=== PATIENT | female | born 1955 | race Two or more races ===

== ENCOUNTER 2019-01-27 12:56 | Emergency (ER) | payer MEDICAID ==
[~2019-01-27] VITALS: Ht 147.3 cm; Wt 58.2 kg
--- NOTE | 2019-01-27 13:16 | NUR ---
PT ARRIVED TO ROOM 24 AMBULATORY. PT C/O HEADACHE AND NECK PAIN. PT STATES SHE TOOK INUPROFEN AND ALLERGY PILL THIS AM. PT ALSO STATES INTERMITTENT NAUSEA AND DIZZINESS. PT ATTACHED TO MONITOR, VSS EXCEPT HTN. MD AT BEDSIDE FOR EXAM. PT RESTING IN GOWN AND ON GURNEY, CALL LIGHT WITHIN REACH.
[2019-01-27 13:24] VITALS: BP 148/80
--- NOTE | 2019-01-27 13:24 | NUR ---
PT MEDICATED FOR PAIN WITH TRAMADOL 50MG. VSS.
== END 2019-01-27 15:16 | disposition home or self-care (01) ==
LOC: ED 15:00
DX: G44.219 Episodic tension-type headache, not intractable (principal); G43.909 Migraine, unspecified, not intractable, without status migrainosus; M54.2 Cervicalgia; F17.200 Nicotine dependence, unspecified, uncomplicated; Z98.890 Other specified postprocedural states; Z88.5 Allergy status to narcotic agent
CPT/HCPCS: 99283

== ENCOUNTER 2019-05-22 12:53 | Emergency (ER) | payer MEDICAID ==
[~2019-05-22] VITALS: Ht 147.3 cm; Wt 58.0 kg
[2019-05-22 14:59] LABS: BASOPHILS # (AUTO) 0.02 x10^3/uL (0-0.1); BASOPHILS % (AUTO) 0 % (0-1); EOSINOPHILS # (AUTO) 0.05 x10^3/uL (0-0.4); EOSINOPHILS % (AUTO) 1 % (1-7); LYMPHOCYTES # (AUTO) 1.82 x10^3/uL (1-3.4); LYMPHOCYTES % (AUTO) 34 % (22-44); MD NO; MEAN CORPUSCULAR HEMOGLOBIN 32.2 pg (27.0-34.8); MEAN CORPUSCULAR VOLUME 97.5 fL (80-100); MEAN PLATELET VOLUME 8.1 fL (7.4-10.4); MONOCYTES # (AUTO) 0.33 x10^3/uL (0.2-0.8); MONOCYTES % (AUTO) 6 % (2-9); NEUTROPHILS % (AUTO) 58 % (42-75); PLATELET COUNT 221 x10^3/uL (130-400); RED BLOOD COUNT 4.77 x10^6/uL (3.82-5.3); RED CELL DISTRIBUTION WIDTH 13.4 % (9.6-15.2)
--- NOTE | 2019-05-22 15:03 | NUR ---
CHOREOGRAPHY DIRECTOR: PT TO ROOM FROM [facility]
[2019-05-22 15:05] LABS: ALANINE AMINOTRANSFERASE 33 U/L (12-78); ALBUMIN 4.2 g/dL (3.4-5.0); ANION GAP 6 mmol/L (5-15); CHLORIDE 107 mmol/L (98-107); CREATININE 0.76 mg/dL (0.55-1.02)
[2019-05-22 15:07] LABS: ALKALINE PHOSPHATASE 139 U/L (45-117); BILIRUBIN,TOTAL 0.4 mg/dL (0.2-1.0); TOTAL PROTEIN 8.1 g/dL (6.4-8.2)
[2019-05-22 15:23] LABS: CULTURE INDICATED? NO; MICROSCOPIC NOT IND
--- NOTE | 2019-05-22 15:59 | NUR ---
BREAK RN: PT W/ C/O LLQ ABD PAIN INTERMITTANT FOR PAST FEW MONTHS. +FOR NAUSEA BUT DENIES EMESIS AND DENIES DIARRHEA. PT VSS, LABS AND URINE RESULTS PENDING. CALL LIGHT W/I REACH.
--- NOTE | 2019-05-22 17:31 | NUR ---
to ct scan
[2019-05-22] MEDS ORDERED: OMNIPAQUE 350 MG/ML, 100ML BOTTLE ONE (17:42)
[2019-05-22 17:50] VITALS: BP 147/99
--- NOTE | 2019-05-22 18:37 | NUR ---
WITH REASSESSMENT PATIENT REPORT PAIN MININMAL-DEFERRING MEDICATIONS ASKING FOR WATER/DISPO ESTIMATION PATIENT PLACED ON RECHECK FOR MD RE-EVAL VSS ON NIBP/POX
== END 2019-05-22 19:25 | disposition home or self-care (01) ==
LOC: ED 16:05
DX: R10.32 Left lower quadrant pain (principal); F17.200 Nicotine dependence, unspecified, uncomplicated
CPT/HCPCS: 36415; 74177; 80053; 81003; 83690; 85025; 99284; Q9967

== ENCOUNTER 2021-01-27 15:35 | Emergency (ER) | payer MEDICAID, MEDICARE ==
[~2021-01-27] VITALS: Ht 147.3 cm; Wt 55.0 kg
--- NOTE | 2021-01-27 15:44 | NUR ---
PT AMBULATORY TO ROOM FROM TRIAGE, PT CHANGED INTO GOWN, MONITORS IN PLACE. PT C/O LLQ PAIN THAT RADIATES TO BACK. PT STATED "I HAVE DIVERTICULITIS. I HAVE BEEN SICK SINCE SUNDAY, I CAN'T TAKE THE PAIN ANYMORE. I ALSO FELL / AND I THINK THAT MADE IT WORST." CALL LIGHT WITHIN REACH
--- NOTE | 2021-01-27 15:55 | NUR ---
ERP AT BS
[2021-01-27] MEDS ORDERED: MORPHINE SULFATE 4 MG/ML, 1ML IVPush PRN (16:00)
[2021-01-27] MEDS ORDERED: ONDANSETRON 2MG/ML, 2ML IVPush ONE (16:00)
[2021-01-27] MEDS ORDERED: MORPHINE SULFATE 4 MG/ML, 1ML ONE (16:04)
[2021-01-27] MEDS ORDERED: ONDANSETRON 2MG/ML, 2ML ONE (16:04)
--- NOTE | 2021-01-27 16:16 | NUR ---
PIV STARTED, BLOOD DRAWN & PT MEDICATED PER EMAR.
[2021-01-27 16:24] LABS: BASOPHILS % (AUTO) 1 % (0-1); EOSINOPHILS % (AUTO) 1 % (1-7); LYMPHOCYTES % (AUTO) 35 % (22-44); MEAN CORPUSCULAR HEMOGLOBIN 33.7 pg (27.0-34.8); MEAN PLATELET VOLUME 8.1 fL (7.4-10.4); MONOCYTES % (AUTO) 7 % (2-9); NEUTROPHILS % (AUTO) 56 % (42-75); PLATELET COUNT 248 x10^3/uL (130-400); RED BLOOD COUNT 4.55 x10^6/uL (3.82-5.3); RED CELL DISTRIBUTION WIDTH 13.9 % (9.6-15.2)
[2021-01-27 16:30] LABS: ALBUMIN 3.9 g/dL (3.4-5.0); ANION GAP 5 mmol/L (5-15); CALCIUM 9.1 mg/dL (8.5-10.1); CHLORIDE 112 mmol/L (98-107)
[2021-01-27 16:33] LABS: MICROSCOPIC NOT IND
[2021-01-27 16:34] LABS: ALANINE AMINOTRANSFERASE 29 U/L (12-78); ALKALINE PHOSPHATASE 136 U/L (45-117); BILIRUBIN,TOTAL 0.4 mg/dL (0.2-1.0); CREATININE 0.71 mg/dL (0.55-1.02); TOTAL PROTEIN 7.8 g/dL (6.4-8.2)
--- NOTE | 2021-01-27 16:42 | NUR ---
PT RESTING ON LEONIE ON HER PHONE. NADN/VSS. CALL LIGHT WITHIN REACH. PT STATES NO NEEDS AT THIS TIME
--- NOTE | 2021-01-27 17:26 | NUR ---
PT RESTING ON [employer] WATCHING TV. NADN/VSS. CALL LIGHT WITHIN REACH. NO NEEDS AT THIS TIME
--- NOTE | 2021-01-27 17:46 | NUR ---
PT TO CT
--- NOTE | 2021-01-27 18:06 | NUR ---
PT BACK FROM CT. CONNECTED TO MONITORS. CALL LIGHT WITHIN REACH
[2021-01-27] MEDS ORDERED: OMNIPAQUE 350 MG/ML, 100ML BOTTLE ONE (18:10)
--- NOTE | 2021-01-27 18:52 | NUR ---
REPORT TO SELVIN EMMANUEL
[2021-01-27 19:10] VITALS: BP 137/74
--- NOTE | 2021-01-27 19:10 | NUR ---
First contact with patient, pt states "im ready to go home", has no complaints right now. Updated pt on delay; AIDET. Waiting for ERP re-eval and dispo. Pt agrees with plan. VSS.
--- NOTE | 2021-01-27 19:27 | NUR ---
Pt wants abx changed to liquid/suspension can't take pills. Informed .
== END 2021-01-27 19:41 | disposition home or self-care (01) ==
LOC: ED 17:11
DX: K57.30 Diverticulosis of large intestine without perforation or abscess without bleeding (principal); Z76.0 Encounter for issue of repeat prescription; F17.200 Nicotine dependence, unspecified, uncomplicated
CPT/HCPCS: 36415; 74177; 80053; 81003; 83690; 85025; 96374; 96375; 99285; J2270; J2405; Q9967